=== PATIENT | female | born 1965 | race Caucasian/White ===

== ENCOUNTER 2017-05-28 22:37 | Emergency (ER) | payer MEDICAID ==
[~2017-05-28] VITALS: Ht 160 cm; Wt 72.6 kg
[2017-05-28 22:45] VITALS: BP_SYST 147
[2017-05-29] MEDS ORDERED: chlordiazePOXIDE HCL 25 MG CAPSULE PO ONE
[2017-05-29] MEDS ORDERED: LORazepam 2 MG/ML VIAL (FOR ER USE) IM ONE
[2017-05-29 00:25] VITALS: BP_SYST 144
== END 2017-05-29 00:25 | disposition home or self-care (01) ==
LOC: SED 22:37
DX: F41.9 Anxiety disorder, unspecified (principal); I10 Essential (primary) hypertension; E78.00 Pure hypercholesterolemia, unspecified
CPT/HCPCS: 96372; 99283; J2060

== ENCOUNTER 2021-01-22 12:45 | Emergency (ER) | payer MEDICAID ==
[~2021-01-22] VITALS: Ht 160 cm; Wt 63.5 kg
[2021-01-22 12:53] VITALS: BP_SYST 157
[2021-01-22] MEDS ORDERED: NEO/5DRO3 OP (13:02)
[2021-01-22 13:18] VITALS: BP_SYST 129
== END 2021-01-22 13:18 | disposition home or self-care (01) ==
LOC: SED 12:45
DX: H10.31 Unspecified acute conjunctivitis, right eye (principal); I10 Essential (primary) hypertension; E78.00 Pure hypercholesterolemia, unspecified; Z79.899 Other long term (current) drug therapy
CPT/HCPCS: 99283